=== PATIENT | female | born 1960 | race Caucasian/White ===

== ENCOUNTER → 2016-07-28 | Outpatient (CLI) | payer OTHER ==
[~2016-07-28] MED LIST: CIPR-255 PO; IMD/2 PO
--- NOTE | 2016-07-28 15:21 | MAMMOGRAPHY REPORT ---
BILATERAL DIGITAL SCREENING MAMMOGRAM TOMOSYNTHESIS WITH CAD: 07/28/2016 TECHNIQUE: Breast tomosynthesis in addition to standard 2D mammography was performed. Current study was also evaluated with a Computer Aided Detection (CAD) system. COMPARISON: Comparison is made to exams dated: 02/10/2014 mammogram - [facility], 09/07/2010 mammogram, 09/06/2009 mammogram, and 09/01/2008 mammogram - [facility]. BREAST COMPOSITION: There are scattered areas of fibroglandular density in both breasts. FINDINGS: No suspicious masses, calcifications, or areas of architectural distortion are [facility] There has been no significant interval change compared to prior exams. IMPRESSION: ACR BI-RADS CATEGORY 1: NEGATIVE There is no mammographic evidence of malignancy. A 1 year screening mammogram is recommended. The p atient will receive written notification of the results. Approximately 10% of breast cancers are not detected with mammography. A negative mammographic repor t should not delay biopsy if a clinically suggestive mass is present. Minna Vivas M.D. ah/:07/28/2016 15:16:17 Medical Affairs Manager: Mila LOMELI(R)(M), [facility] letter sent: Normal 1/2 BI-RADS Code: ACR BI-RADS Category 1: Negative
== END | disposition home or self-care (01) ==
LOC: C.MAMM 13:23
PROVIDERS: ATTEND Physician Assistant
DX: Z12.31 Encounter for screening mammogram for malignant neoplasm of breast (principal)

== ENCOUNTER → 2017-08-07 | Outpatient (CLI) | payer OTHER ==
--- NOTE | 2017-08-07 12:51 | MAMMOGRAPHY REPORT ---
BILATERAL DIGITAL SCREENING MAMMOGRAM TOMOSYNTHESIS WITH CAD: 08/07/2017 CLINICAL HISTORY: Routine screening. Patient has no complaints. TECHNIQUE: Breast tomosynthesis in addition to standard 2D mammography was performed. Current study was also evaluated with a Computer Aided Detection (CAD) system. COMPARISON: Comparison is made to exams dated: 07/28/2016 mammogram, 02/10/2014 mammogram - [facility], 09/07/2010 mammogram, 09/06/2009 mammogram, and 09/01/2008 mammogram - [facility]. BREAST COMPOSITION: There are scattered areas of fibroglandular density in both breasts. FINDINGS: There is a 9 mm nodular asymmetry in the lateral, middle one third of the left breast, onl y seen on the CC view and corresponding tomosynthesis images (slice 38/87), but thought to project thompson periorly on the MLO view. Additional spot compression tomosynthesis views and possible ultrasound ar e recommended. No other suspicious mass, architectural distortion or cluster of microcalcifications is seen. IMPRESSION: ACR BI-RADS CATEGORY 0: INCOMPLETE EVALUATION: NEED ADDITIONAL IMAGING EVALUATION The 9 mm nodular asymmetry in the lateral left breast needs additional evaluation. The patient will be called to schedule an appointment. Approximately 10% of breast cancers are not detected with mammography. A negative mammographic report should not delay biopsy if a clinically suggestive mass is present. Esthela Churchill M.D. ay/:08/07/2017 08:35:13 Upper Tier: Josselyn PEREZ)(Regan), [facility] letter sent: Addl Imaging 0 BI-RADS Code: ACR BI-RADS Category 0: Incomplete Evaluation: Need Additional Imaging Evaluation
== END | disposition home or self-care (01) ==
LOC: C.MAMM 07:23
PROVIDERS: ATTEND Family Medicine
DX: Z12.31 Encounter for screening mammogram for malignant neoplasm of breast (principal); N64.89 Other specified disorders of breast

== ENCOUNTER → 2017-08-20 | Outpatient (CLI) | payer OTHER ==
--- NOTE | 2017-08-21 07:40 | MAMMOGRAPHY REPORT ---
UNILATERAL LEFT DIGITAL DIAGNOSTIC MAMMOGRAM TOMOSYNTHESIS AND TARGETED LEFT ULTRASOUND: 08/20/2017 CLINICAL HISTORY: 57-year-old woman called back from screening mammography for a 9 mm nodular asymmet ry in the lateral left breast. Family history of breast cancer = mother. Patient also reports pain in the lateral left breast, which has been intermittent over the past few months. TECHNIQUE: Spot compression 2D and tomosynthesis left CC and MLO views were obtained. COMPARISON: Comparison is made to exams dated: 08/07/2017 mammogram, 07/28/2016 mammogram, 02/10/2014 mammogram - [facility], 09/07/2010 mammogram, and 09/06/2009 mammogram - [facility]. BREAST COMPOSITION: There are scattered areas of fibroglandular density in the left breast. FINDINGS: The supplemental spot compression tomosynthesis views of the left breast demonstrate a pers istent low density, 8.7 x 6.9 x 7.0 mm mass in the upper outer middle one third of the left breast. No associated architectural distortion or microcalcification. No other obvious mass or area of disto rtion is identified. Further evaluation with ultrasound was performed. Targeted ultrasound was performed in the lateral left breast. In the 3:00 axis, 4 cm from the nipple , there is a predominantly anechoic, gently lobulated and circumscribed cystic-appearing mass with a few thin internal nonvascular septations. There is evidence of posterior acoustic enhancement and no internal vascularity is demonstrated. This mass measures approximately 6.6 x 6.8 x 9.0 mm and most likely represents a complicated cyst. It is thought to correspond with the mammographic finding as w ell. No other suspicious solid or cystic mass is seen. IMPRESSION: ACR-BI-RADS CATEGORY 3: PROBABLY BENIGN, TARGETED ULTRASOUND ACR-BI-RADS CATEGORY 3: PRO BABLY BENIGN The persistent circumscribed 9 mm mammographic mass in the upper outer quadrant of the left breast is thought to correspond with a complicated cyst seen in the 3:00 left breast on ultrasound. Given owen t this mass does not meet all of the criteria for a benign simple cyst, a short interval follow-up le ft diagnostic tomosynthesis mammogram and repeat targeted ultrasound is recommended to ensure stabili ty in 6 months. These results and recommendations were discussed with the patient at the time of the exam. She tenta tively scheduled a follow-up appointment prior to leaving our department. Approximately 10% of breast cancers are not detected with mammography. A negative mammographic report should not delay biopsy if a clinically suggestive mass is present. Esthela Churchill M.D. ay/:08/20/2017 10:04:36 Confectionery Maker: Josselyn LOMELI(Ella)(Regan), [facility] letter sent: Follow Up Recommended 3 BI-RADS Code: ACR-BI-RADS Category 3: Probably Benign Ultrasound BI-RADS: ACR-BI-RADS Category 3: Pr obably Benign
== END | disposition home or self-care (01) ==
LOC: C.MAMM 09:32
PROVIDERS: ATTEND Family Medicine
DX: N64.89 Other specified disorders of breast (principal); N63.21 Unspecified lump in the left breast, upper outer quadrant